=== PATIENT | female | born 1985 | race African-American/Black ===

== ENCOUNTER 2017-11-25 18:28 | Emergency (ER) | payer MEDICAID ==
[~2017-11-25] VITALS: Ht 165.1 cm; Wt 68.0 kg
[2017-11-25] MEDS ORDERED: SODIUM CHLORIDE 0.9% 1,000 ML IV ONE (23:09)
[2017-11-26 00:47] LABS: BASOPHILS % 0.2 % (0.0-2.0); EOSINOPHILS % 1.8 % (0.0-5.0); HEMATOCRIT. 41.8 % (36.0-48.0); HEMOGLOBIN. 14.4 g/dL (12.0-16.0); MEAN CORPUSCULAR HEMOGLOBIN 30.7 pg (28.0-32.0); MEAN CORPUSCULAR VOLUME 89.1 fL (81.0-99.0); MEAN PLATELET VOLUME 8.8 fl (7.4-10.4); MONOCYTES % 5.7 % (2.0-8.0); NEUTROPHILS % 51.3 % (40.0-76.0); PLATELET 212 x1000/uL (130-400); RED CELL DISTRIBUTION WIDTH 13.1 % (11.6-14.6)
[2017-11-26 00:52] LABS: CLARITY URINE CLOUDY (CLEAR); COLOR URINE YELLOW (YELLOW); KETONES URINE NEGATIVE (NEGATIVE); LEUKOCYTE ESTERASE URINE 2+ (NEGATIVE); NITRITE URINE NEGATIVE (NEGATIVE); OCCULT BLOOD URINE NEGATIVE (NEGATIVE); PROTEIN URINE NEGATIVE (NEGATIVE); SPECIFIC GRAVITY URINE 1.015 (1.005-1.030)
[2017-11-26 00:54] LABS: CHLORIDE 108 mEq/L (98-107)
[2017-11-26 00:58] LABS: PROTHROMBIN TIME 10.5 sec (9.1-11.1)
[2017-11-26 01:09] LABS: *AMPHETAMINES SCREEN URINE NEGATIVE (NEGATIVE); HCG SCREEN NEGATIVE
[2017-11-26 01:10] LABS: *BARBITURATES SCREEN URINE NEGATIVE (NEGATIVE); *BENZODIAZEPINES SCREEN URINE NEGATIVE (NEGATIVE); *COCAINE SCREEN URINE NEGATIVE (NEGATIVE)
[2017-11-26 01:11] LABS: CANNABINOID URINE SCREEN NEGATIVE (NEGATIVE); METHADONE URINE SCREEN NEGATIVE (NEGATIVE); OPIATES URINE SCREEN NEGATIVE (NEGATIVE); PHENCYCLIDINE URINE SCREEN NEGATIVE (NEGATIVE)
[2017-11-26 02:19] VITALS: BP 105/69
== END 2017-11-26 05:30 | disposition home or self-care (01) ==
LOC: ER 18:28
DX: N64.4 Mastodynia (principal); N39.0 Urinary tract infection, site not specified; G43.909 Migraine, unspecified, not intractable, without status migrainosus; Z85.9 Personal history of malignant neoplasm, unspecified
CPT/HCPCS: 36415; 71045; 80053; 80305; 81003; 81025; 83690; 84703; 85025; 85610; 87086; 93005; 96360; 99285; J7030; Z7610

== ENCOUNTER 2020-07-18 17:59 | Emergency (ER) | payer MEDICAID ==
[~2020-07-18] VITALS: Ht 172.7 cm; Wt 86.0 kg
[2020-07-18] MEDS ORDERED: ACETAMINOPHEN 325MG TABLET PO ONE (20:00)
[2020-07-18 21:00] VITALS: BP 121/69
== END 2020-07-18 21:00 | disposition home or self-care (01) ==
LOC: ER 17:59
DX: J01.90 Acute sinusitis, unspecified (principal)
CPT/HCPCS: 70486; 99284

== ENCOUNTER 2020-11-16 08:17 | Emergency (ER) | payer MEDICAID ==
[~2020-11-16] VITALS: Ht 167.6 cm; Wt 80.0 kg
[2020-11-16] MEDS ORDERED: LIDOCAINE HCL 1% 20ML VIAL (Pyxis) INJ INFIL ONE (09:30)
[2020-11-16 09:44] VITALS: BP 118/70
== END 2020-11-16 09:45 | disposition home or self-care (01) ==
LOC: ER 08:17
DX: M67.441 Ganglion, right hand (principal)
CPT/HCPCS: 20612; 81025; 99283; Z7610; 99282